=== PATIENT | female | born 1960 | race African-American/Black ===

== ENCOUNTER 2025-03-07 14:53 | Outpatient (AMB) | payer OTHER, SELFPAY ==
--- NOTE | 2025-03-07 15:02 | A.OFFPC_ITS ---
Vital Signs 03/07/25 15:04 Height 5 ft 4 in Weight 161 lb 2 oz BMI 27.7 BP 180/82 H Blood Pressure Location Lt brachial Position Sitting Respiration 18 Pulse 123 H Pulse Source Pulse Oximeter Temp 97.3 F Temp Source Temporal Artery Scan Pulse Oximetry (%) 96 Oxygen Delivery Method Room Air Intake Visit Reasons: establish care Diamond Mounter Required: No Accompanied by: Daughter Allergies pork derived (porcine) Allergy (Intermediate, Verified 03/07/25 15:20) Rash Medication List - Last Reconciled 03/07/25 by JENELLE Lebron atorvastatin (Lipitor) 40 mg PO BEDTIME brimonidine-timolol 0.2-0.5 % 1 drp ophthalmic (eye) BID losartan 100 mg PO DAILY nifedipine ER 30 mg PO BID travoprost 0.004% 1 drp ophthalmic (eye) QPM Tobacco use date assessed: 03/07/25 Dental Screening Dental Screen Date: 03/07/25 Did you have a dental visit in the last 12 months?: No Did you have a dental problem in the last 6 months where you did not have access to dental care?: No Was dental information given to patient?: Patient has dentist HPI establish care HPI Details Previous PCP: October, Last visit: 10/31/2024, she has been to urgent care few weeks back for med refill and blood pressure check Last PE: n/a Specialist: Needs ophthalmology referral (cataract) OBGYN: [facility] [place]- mammogram-needs ordered. Past medical history: severe whitecoat syndrome, high cholesterol, htn, cataract, Blindness in both eyes could see some bright colors, no dark colors, anxiety Medications: Family HX: htn-father hld-mother, father passed from throat cancer (smoker) surgical hx: hysterectomy and fibroid removd October,, tooth extraction Problem: The patient is a 64-year-old female who presents establish care and management of chronic conditions. The patient has a history of hypertension and white coat syndrome, for which she monitors her blood pressure at home. She has been complaining of right shoulder pain, which seems to have started after sleeping on that side. Pain is managed with as-needed Tylenol. The patient has a history of cataracts in both eyes and was previously scheduled for surgery, though this was postponed. She experiences visual disturbances, described as seeing dark colors. She uses two types of eye drops, one twice daily and another at nighttime, and requires refills. She reports chronic constipation, for which she has used Miralax powder. The patient also complains of intermittent pain in the joints of her fingers on both hands, without associated tingling. Past surgical history is significant for a hysterectomy for uterine fibroids. Family history is notable for high cholesterol and hypertension, and her father from colon cancer. Right shoulder pain for two weeks- has been taking Tylenol 500mg as needed with positive. [facility] Medical History (Updated 03/13/25 @ 14:39 by JENELLE Lebron) Blindness Cataract Hypertension Anxiety High cholesterol Surgical History H/O: hysterectomy H/O tooth extraction Social History Household Members: Family Housing: House Alcohol intake: current Patient Tobacco Use Status: Never used Tobacco e-Cigarette/Vaping Use: Never Used Current occupational status: disabled Cognitive needs: Yes Hearing needs: No Vision needs: Yes Questionnaire PHQ-9 Over the last 2 weeks, how often have you been bothered by any of the following problems? 1. Little interest or pleasure in doing things: not at all 2. Feeling down, depressed, or hopeless: not at all 3. Trouble falling or staying asleep, or sleeping too much: not at all 4. Feeling tired or having little energy: not at all 5. Poor appetite or overeating: not at all 6. Feeling bad about yourself - or that you are a failure or have let yourself or your family down: not at all 7. Trouble concentrating on things, such as reading the newspaper or watching television: not at all 8. Moving or speaking so slowly that other people could have noticed. Or the opposite - being so fidgety or restless that you have been moving around a lot more than usual: not at all 9. Thoughts that you would be better off or of hurting yourself in some way: not at all Total score: 0 Depression Screening Interpretation: Negative Depression Screening Done: Yes 75417 - PHQ-9 Billing: Yes Source: Developed by Drs. Craig Cabral, Dusty Motta and colleagues, with an educational reginaldo from [employer]. Thrive Questionnaire Date Thrive assessed: 03/05/25 I am a: Parent/Caregiver What is your living situation today?: I have a steady place to live Within the past 12 months, did the food you bought not last and you didn't have the money to get more?: I choose not to answer this question Within the past 12 months, did you worry whether your food would run out before you got money to buy more?: I choose not to answer this question Do you have trouble paying for medicines?: No Do you have trouble getting transportation to medical appointments?: No Do you have trouble paying your heating and electricity bill?: I choose not to answer this question Do you have trouble taking care of your child, family member or friend?: No Do you have trouble with day-to-day activities such as bathing, preparing meals, shopping, managing finances, etc.?: Yes Are you currently unemployed and looking for a job?: No Are you interested in more education?: No Please select the resources that you would like help with: None Currently or been in a relationship where the following occur: No concerns reported THRIVE Score: 0 AUDIT C Alcohol Use Questionnaire (AUDIT-C) 1. How often do you have a drink containing alcohol?: Monthly or less 2. How many drinks containing alcohol do you have on a typical day when you are drinking?: 1 or 2 3. How often do you have six or more drinks on one occasion?: Never Total Score: 1 WILD-7 AMB Questionnaire WILD-7 Feeling nervous, anxious, or on edge: 0 = Not at all Not being able to stop or control worryin = Not at all Worrying too much about different things: 0 = Not at all Trouble relaxin = Not at all Being so restless that it is hard to sit still: 0 = Not at all Becoming easily annoyed or irritable: 0 = Not at all Feeling afraid as if something awful might happen: 0 = Not at all Total WILD-7 score (0-4 normal; 5-9 mild; 10-14 moderate; 15-21 severe): 0 Source: Developed by Drs. Craig Cabral, Dusty Motta and colleagues, with an educational reginaldo from [employer]. WILD-7 Assessment Billing WILD-7 Assessment Tool: WILD-7 Assessment 67536 Review of Systems Const Denies headache(s) Eyes Reports change in vision (Seeing dark spots) and Reports loss of vision ENT Denies vertigo, Denies dizziness, Denies headache(s) and Denies sore throat Card Denies chest pain, Denies leg edema and Denies lightheadedness Resp Denies cough, Denies hemoptysis and Denies wheezing GI Denies abdominal pain, Denies melena, Reports constipation, Denies diarrhea and Denies vomiting Denies urinary frequency, Denies dysuria and Denies urinary urgency Musc Reports arthralgias (Right shoulder and knee), Denies joint swelling, Denies numbness and Denies tingling Neuro Denies Abnormal speech present, Denies behavioral changes, Denies vertigo, Denies dizziness, Denies headache(s), Reports loss of vision, Denies memory loss, Denies numbness and Denies tingling Psych Denies anxiety, Denies behavioral changes, Denies depression, Denies memory loss and Denies panic attacks Javier/Lymph Denies easy bleeding and Denies easy bruising Aller/Immun Denies wheezing Physical exam (Primary Care) Vital Signs: Last Vital Signs Temp 97.3 F 03/07/25 15:04 Pulse 123 H 03/07/25 15:04 Resp 18 03/07/25 15:04 BP 180/82 H 03/07/25 15:04 Pulse Ox 96 03/07/25 15:04 Oxygen Delivery Method Room Air 03/07/25 15:04 BMI result Body Mass Index 27.7 Tobacco/Smoking Status: Tobacco use Status Tobacco use date assessed 03/07/25 03/07/25 15:19 Patient Tobacco Use Status Never used Tobacco 03/07/25 15:19 e-Cigarette/Vaping Use Never Used 03/07/25 15:19 PHQ-9: PHQ-9 Score PHQ-9: Total score 0 03/13/25 13:38 Depression Screening Interpretation: Negative Thrive Assessment: Date of Thrive Assessment Date Thrive assessed 03/05/25 03/07/25 15:19 Currently or been in a relationship where the following occur: No concerns reported Const General: healthy appearing, no acute distress, alert and awake Nutritional Appearance: well nourished Orientation/consciousness: oriented to person, oriented to place and oriented to time HENMT Ears: TM normal on the left and Abnormal EAC present cerumen impaction on the right General nose exam: Normal nasal mucous membranes and turbinates present Eyes Conjunctivae: conjunctivae normal Sclerae: sclerae normal Pupils: Equal, round and reactive pupils present Neck Neck: Yes no lymphadenopathy and Yes no JVD Thyroid: Thyroid normal Carotids: no bruits Resp Effort & Inspection: normal respiratory effort and not tachypneic Auscultation: no crackles, no rales, no rhonchi and no wheezes Cardio Rate: regular rate Rhythm: regular rhythm Heart sounds: no murmurs and normal S1 and S2 GI Palpation (GI): Soft to palpation, nontender, no hepatomegaly and no splenomegaly Auscultation: normal bowel sounds General: Yes no CVA tenderness Back/Spine/Pelvis Back: no CVA tenderness Thoracic/Lumbar Spine: No lumbar spinal tenderness Skin General skin exam: no rashes or lesions noted and dry skin Neuro General: oriented to person, oriented to place and oriented to time Cranial nerves: Yes Equal, round and reactive pupils present Speech: No Abnormal speech present Gait exam (Neuro): Normal gait present Motor exam (neuro): no tremor noted Extrem Right upper extremity: full ROM and shoulder/upper arm Details: tenderness Location: of the A-C joint and normal ROM; no swelling Left upper extremity: full ROM Right lower extremity: full ROM and knee Details: no tenderness and no swelling; no edema Left lower extremity: full ROM; no edema Psych Mental Status: mental status grossly normal Speech and movement: Normal speech and movement present Affect: normal affect Attitude: cooperative Thought process: Normal thought process present Coding Level of Care Code New Pt Level 4 (63188) Diagnoses Primary hypertension I10 Hypertension type: primary hypertension Cataract of both eyes, unspecified cataract type H26.9 Cataract type: unspecified Laterality: bilateral Blindness of left eye, unspecified right eye visual impairment category H54.40 Left eye visual impairment category: left - unspecified blindness Right eye visual impairment category: right - unspecified impairment Acute pain of right shoulder M25.511 Chronicity: acute Constipation, unspecified constipation type K59.00 Constipation type: unspecified constipation type Right ear impacted cerumen H61.21 Additional Codes PHQ-9 - 71631 - PHQ-9 Billing: Yes ([id number]) WILD-7 Assessment Billing - WILD-7 Assessment Tool: WILD-7 Assessment 95055 ([id number]) Time Spent (min) 39 Assessment & Plan Assessment & Plan (1) Hypertension: Code(s): I10 - Essential (primary) hypertension Category: Medical Qualifiers: Hypertension type: primary hypertension Qualified Code(s): I10 - Essential (primary) hypertension Plan: The patient has a history of hypertension and white coat syndrome, requiring her to monitor her blood pressure at home. She has about one month of her cholesterol medication left and also needs refills for her blood pressure medications. The plan is to continue home monitoring, refill her medications, and order comprehensive blood work to ensure her kidneys and electrolytes are stable. (2) Cataract: Code(s): H26.9 - Unspecified cataract Category: Medical Qualifiers: Cataract type: unspecified Laterality: bilateral Qualified Code(s): H26.9 - Unspecified cataract Plan: The patient has bilateral cataracts affecting her vision, and a previously scheduled surgery was postponed. She uses two different eye drops and needs refills for both. A referral will be placed to ophthalmology for further management and surgical evaluation, and her eye drops will be refilled. (3) Blindness: Code(s): H54.7 - Unspecified visual loss Category: Medical Qualifiers: Left eye visual impairment category: left - unspecified blindness Right eye visual impairment category: right - unspecified impairment Qualified Code(s): H54.40 - Blindness, one eye, unspecified eye Plan: Patient reports blindness in bilateral eyes. She could see some colors but she is legally blind. (4) Right shoulder pain: Code(s): M25.511 - Pain in right shoulder Category: Medical Qualifiers: Chronicity: acute Qualified Code(s): M25.511 - Pain in right shoulder Plan: The patient's right shoulder pain is thought to be inflammatory, likely from sleeping on her side. She has been taking Tylenol as needed. Examination revealed tenderness without restricted motion, and there is no numbness, tingling, or weakness. An x-ray of the right shoulder will be ordered to establish a baseline and evaluate for underlying arthritis. (5) Constipation: Code(s): K59.00 - Constipation, unspecified Category: Medical Qualifiers: Constipation type: unspecified constipation type Qualified Code(s): K59.00 - Constipation, unspecified Plan: The patient experiences chronic constipation and manages it with Miralax powder, of which she is running low. It was recommended that she take Miralax daily to maintain regular bowel movements, and adjust the frequency if her stools become too loose. (6) Right ear impacted cerumen: Code(s): H61.21 - Impacted cerumen, right ear Category: Medical Plan: Physical exam revealed a cerumen impaction in the right ear. The patient was instructed to use Debrox drops to soften the wax, followed by flushing with warm water using a bulb syringe. She was advised to return for a recheck and possible in-office removal if home treatment is not effective. Orders: Orders Lipid Panel 03/07/25 E78.5 - Hyperlipidemia, unspecified, H26.9 - Unspecified cataract, H54.7 - Unspecified visual loss, I10 - Essential (primary) hypertension, Z00.00 - Encounter for general adult medical examination without abnormal findings TSH reflex Free T4 03/07/25 E78.5 - Hyperlipidemia, unspecified, H26.9 - Unspecified cataract, H54.7 - Unspecified visual loss, I10 - Essential (primary) hypertension, Z00.00 - Encounter for general adult medical examination without abnormal findings UA CC w/rflx Micro + Cult 03/07/25 E78.5 - Hyperlipidemia, unspecified, H26.9 - Unspecified cataract, H54.7 - Unspecified visual loss, I10 - Essential (primary) hypertension, Z00.00 - Encounter for general adult medical examination without abnormal findings MM tomosynthesis screening BI Today Z12.31 - Encounter for screening mammogram for malignant neoplasm of breast Complete Blood Count Auto Diff 03/07/25 E78.5 - Hyperlipidemia, unspecified, H26.9 - Unspecified cataract, H54.7 - Unspecified visual loss, I10 - Essential (primary) hypertension, Z00.00 - Encounter for general adult medical examination without abnormal findings Comprehensive [place]. Panel Fast 03/07/25 E78.5 - Hyperlipidemia, unspecified, H26.9 - Unspecified cataract, H54.7 - Unspecified visual loss, I10 - Essential (primary) hypertension, Z00.00 - Encounter for general adult medical examination without abnormal findings Vitamin D 25-OH Total 03/07/25 E78.5 - Hyperlipidemia, unspecified, H26.9 - Unspecified cataract, H54.7 - Unspecified visual loss, I10 - Essential (primary) hypertension, Z00.00 - Encounter for general adult medical examination without abnormal findings XR shoulder RT min 2V 03/07/25 M25.511 - Pain in right shoulder Referrals Ophthalmology Referral H26.9 - Unspecified cataract, H54.7 - Unspecified visual loss [employer] Referral Z01.419 - Encounter for gynecological examination (general) (routine) without abnormal findings Medications: New brimonidine-timolol 0.2-0.5 % 1 drp ophthalmic (eye) BID 15 mL 3RF travoprost 0.004% 1 drp ophthalmic (eye) QPM 5 mL 3RF
[2025-03-07 15:04] VITALS: BP 180/82; PULSE 123; RESP 18; TEMP 36.3; O2SAT 96; BMI 27.7
== END 2025-03-07 16:01 | disposition home or self-care (01) ==
LOC: HO.HMCH 14:54
DX: I10 Essential (primary) hypertension (principal); H26.9 Unspecified cataract; H54.40 Blindness, one eye, unspecified eye; M25.511 Pain in right shoulder; K59.00 Constipation, unspecified; H61.21 Impacted cerumen, right ear

== ENCOUNTER → 2025-03-07 14:53 | Outpatient (BNVA) | payer OTHER, SELFPAY | DX: I10 Essential (primary) hypertension (principal); M25.511 Pain in right shoulder; H26.9 Unspecified cataract; K59.09 Other constipation; M54.40 Lumbago with sciatica, unspecified side; H61.21 Impacted cerumen, right ear | CPT/HCPCS: 96127; 99202 ==

== ENCOUNTER 2025-03-14 12:38 | Outpatient (REF) | payer OTHER, SELFPAY ==
--- NOTE | ~2025-03-14 | XR_ITS ---
EXAMINATION: XR SHOULDER, RIGHT CLINICAL INFORMATION: M25.511 - Pain in right shoulder COMPARISON: None available. TECHNIQUE: AP external rotation, Grashey, scapular Y, and axillary views of the right shoulder. FINDINGS: Bone mineralization appears slightly decreased. No visible acute fracture or dislocation. No suspicious bony lesion. Mild acromioclavicular arthritis. Minimal glenohumeral joint arthritis. Mild greater tuberosity bony spurring. No abnormal soft tissue calcification. XR/XR shoulder RT min 2V IMPRESSION: Mild acromioclavicular arthritis. Minimal glenohumeral joint arthritis. Electronically signed by: Robin Boss MD 03/14/2025 04:23 PM ROCKY ANDERSEN
[2025-03-14 13:07] LABS: MANUAL DIFF FLAG NO
[2025-03-14 13:39] LABS: Hematocrit 39.8 % (37.0-47.0); Hemoglobin 12.9 g/dl (12.0-16.0); Imm Gran Abs Auto 0.02 X10*3/uL (0.00-0.03); Imm Gran Pct Auto 0.4 % (0.0-0.4); Lymphocytes Absolute Auto 1.9 X10*3/uL (1.2-4.9); Mean Corpuscular HGB Conc 32.4 g/dl (31.0-35.0); Mean Corpuscular Hemoglobin 26.8 pg (27.0-33.0); Mean Corpuscular Volume 82.7 fL (80.0-98.0); NRBC Abs Auto 0.000 X10*3/uL (0.0-0.012); NRBC Pct Auto 0.0 /100WBC (0.0-0.2); Platelet Count 316 X10*3/uL (160-400); Red Blood Count 4.81 X10*6/uL (4.20-5.50); White Blood Count 5.6 X10*3/uL (4.8-10.8)
[2025-03-14 14:24] LABS: Alanine Aminotransferase 70 U/L (0-31); Albumin Level 5.1 g/dL (3.5-5.0); Alkaline Phosphatase 95 U/L (39-117); Anion Gap 15 (12-20); Aspartate Amino Transferase 44 U/L (5-31); Blood Urea Nitrogen 14 mg/dL (9-16); Calcium 10.5 mg/dL (8.4-10.2); Carbon Dioxide 23 mmol/L (22-29); Chloride 108 mmol/L (96-108); Cholesterol 178 mg/dL (<200); Estimated Glomerular Filt Rate > 60; HDL Cholesterol 42 mg/dL (>40); Potassium 3.9 mmol/L (3.3-5.1); Sodium 142 mmol/L (135-145); Total Protein 9.2 g/dL (6.5-8.0); Triglycerides 222 mg/dL (<150)
== END 2025-03-14 12:39 | disposition home or self-care (01) ==
LOC: HO.XRAY 12:38
DX: Z00.00 Encounter for general adult medical examination without abnormal findings (principal); I10 Essential (primary) hypertension; M25.511 Pain in right shoulder; E78.5 Hyperlipidemia, unspecified; H26.9 Unspecified cataract; H54.7 Unspecified visual loss
CPT/HCPCS: 36415; 73030; 80053; 80061; 82306; 84443; 85025

== ENCOUNTER 2025-03-15 11:12 | Outpatient (REF) | payer OTHER, SELFPAY ==
[2025-03-15 11:32] LABS: Appearance Urine Clear; Glucose Urine UA Negative (Negative); PH 5.5 (5.0-9.0); Specific Gravity - Urine 1.020 (1.005-1.025); UMIC TRIGGER UACC YES
== END 2025-03-15 11:13 | disposition home or self-care (01) ==
LOC: HO.LNP 11:12
DX: Z00.00 Encounter for general adult medical examination without abnormal findings (principal); I10 Essential (primary) hypertension; E78.5 Hyperlipidemia, unspecified; H26.9 Unspecified cataract; H54.7 Unspecified visual loss
CPT/HCPCS: 81001

== ENCOUNTER 2025-04-12 09:07 | Outpatient (REF) | payer OTHER, SELFPAY ==
[2025-04-12 10:48] LABS: Parathyroid Hormone Intact 55.6 pg/mL (8.7-77.1)
[2025-04-12 10:56] LABS: Alanine Aminotransferase 17 U/L (0-31); Albumin Level 4.9 g/dL (3.5-5.0); Alkaline Phosphatase 74 U/L (39-117); Anion Gap 13 (12-20); Aspartate Amino Transferase 16 U/L (5-31); Blood Urea Nitrogen 13 mg/dL (9-16); Calcium 10.4 mg/dL (8.4-10.2); Carbon Dioxide 26 mmol/L (22-29); Chloride 105 mmol/L (96-108); Estimated Glomerular Filt Rate > 60; Magnesium 2.1 mg/dL (1.6-2.6); Potassium 3.4 mmol/L (3.3-5.1); Sodium 141 mmol/L (135-145); Total Protein 8.8 g/dL (6.5-8.0)
[2025-04-12 11:13] LABS: HBS Num1 13.30 mIU/mL (0-7.99); HBc Num1 6.48 S/CO (0.00-0.79); HBsAGNum1 0.40 S/CO (0.00-0.99); Hepatitis A Antibody IgM 0.26 Index (0-0.79); Hepatitis B Surface Antigen Negative (Negative); ~HepC Num1 0.23 S/CO (0.00-0.79); ~Hepatitis A Antibody IgM Nonreactive (Nonreactive); ~Hepatitis B Surface Antibody REACTIVE (Nonreactive); ~Hepatitis C Antibody Nonreactive (Nonreactive)
[2025-04-12 11:24] LABS: Appearance Urine Clear; Glucose Urine UA Negative (Negative); PH 6.5 (5.0-9.0); Specific Gravity - Urine 1.010 (1.005-1.025); UMIC TRIGGER UACC YES
[2025-04-12 12:00] LABS: HBc Num2 6.32 S/CO; HBc Num3 6.56 S/CO
[2025-04-14 18:44] LABS: Transferrin 282 mg/dL (188-341)
[2025-04-15 09:49] LABS: Calcium, Ionized 5.6 mg/dL (4.7-5.5)
== END 2025-04-12 09:08 | disposition home or self-care (01) ==
LOC: HO.LAB 09:07
DX: R74.8 Abnormal levels of other serum enzymes (principal); E83.52 Hypercalcemia; R73.01 Impaired fasting glucose; Z11.59 Encounter for screening for other viral diseases
CPT/HCPCS: 36415; 80053; 81001; 81003; 82306; 82330; 83036; 83735; 83970; 84100; 84466; 86704; 86706; 86709; 86803; 87340

== ENCOUNTER 2025-04-28 16:05 | Outpatient (AMB) | payer OTHER, SELFPAY ==
[2025-04-28 16:08] VITALS: BP 158/100; PULSE 125; RESP 16; TEMP 37.3; O2SAT 97; BMI 28.6
--- NOTE | 2025-04-28 16:08 | MHC.PC.OV ---
Vital Signs 04/28/25 16:08 Height 5 ft 4 in Weight 166 lb 10.711 oz BMI 28.6 BP 158/100 H Blood Pressure Location Lt brachial Position Sitting Respiration 16 Pulse 125 H Pulse Source Pulse Oximeter Temp 99.1 F Temp Source Oral Pulse Oximetry (%) 97 Oxygen Delivery Method Room Air Intake Visit Reasons: Annual exam Poster Required: No Accompanied by: Self / Same As Patient Allergies pork derived (porcine) Allergy (Intermediate, Verified 04/28/25 16:23) Rash travaprost Allergy (Severe, Uncoded 04/28/25 16:23) Facial Swelling Medication List - Last Reconciled 04/28/25 by JENELLE Lebron atorvastatin (Lipitor) 40 mg PO BEDTIME brimonidine-timolol 0.2-0.5 % 1 drp ophthalmic (eye) BID erythromycin 0.5 inches ophthalmic (eye) BID 7 days latanoprost 0.005% 1 drp ophthalmic (eye) QPM losartan 100 mg PO DAILY nifedipine ER 30 mg PO BID 90 days travoprost 0.004% 1 drp ophthalmic (eye) QPM Tobacco use date assessed: 04/28/25 Dental Screening Dental Screen Date: 04/28/25 Did you have a dental visit in the last 12 months?: No Did you have a dental problem in the last 6 months where you did not have access to dental care?: No Was dental information given to patient?: No HPI Annual exam HPI Details Dentist: Not yet Eye: appointment in [place] in [facility] [place]: Right: Left: Corrected vision: STI screening: Colonoscopy: Pap Smer:appointment scheduled PHQ-9: Flu: up to date COVID: up to ishaan Tdap:up to date Diet: regular Exercise: The patient is a 64 year old female presenting for a follow-up visit to review lab results and manage chronic conditions. She has a history of white coat hypertension, with blood pressure readings being normal at home but elevated in the clinic. She checks her blood pressure about twice a week at home. Recent lab work revealed an A1c of 6.2%, placing her in the prediabetic range. Her liver enzymes, which were previously elevated, have normalized since she stopped taking her statin medication about two weeks prior to the labs. Her triglycerides are elevated, and her CBC showed a low-normal MCV and MCH, indicating a potential future risk for iron deficiency anemia. Her calcium level remains slightly elevated at 10.2, though it has decreased slightly. A prior check of her parathyroid hormone was normal but on the higher side, and a urinalysis showed trace blood. The patient also reports ongoing right shoulder pain, presumed to be from arthritis, which has responded well to topical diclofenac gel in the past. She experiences occasional dependent edema in her feet and has had some recent nasal congestion. She expresses anxiety in clinical settings. Regarding health maintenance, the patient has an upcoming eye exam in June and a [employer] appointment in May. She needs to schedule a dental visit and a mammogram. She has never had a colonoscopy and is agreeable to Cologuard testing. Health Maintenance Continue with scheduled appointments, including her eye exam in June and [employer] visit in May. An order for Cologuard will be placed for colon cancer screening. A prescription for a transfer chair will be submitted. Social History - Nutrition: Advised to monitor intake of sugar and carbohydrates such as bread and rice. - Functional Status: Utilizes a wheelchair; a request for a chlorination operator, foldable transfer chair was made. Results - CBC: Results are good, though MCV and MCH are on the low side of normal, suggesting red blood cells are slightly pale and small, which could indicate a trend toward iron deficiency. - Comprehensive Metabolic Panel: Electrolytes, BUN, and creatinine are within normal limits. Potassium is slightly lower but still normal. Glucose is fine. - Hemoglobin A1c: 6.2%, which is in the prediabetic range. - Calcium: Slightly elevated at 10.2, but has come down slightly. - Ionized Calcium: Slightly low. - Parathyroid Hormone (PTH): Normal, but on the higher side of the range. - Liver Function Tests: Liver enzymes are completely normal. - Lipid Panel: Triglycerides are elevated. Other cholesterol values are good. - Thyroid Function Tests: TSH is good. - Urinalysis: Shows traces of blood. [facility] Medical History (Updated 04/30/25 @ 12:54 by JENELLE Lebron) Blindness Cataract Hypertension Anxiety High cholesterol Surgical History H/O: hysterectomy H/O tooth extraction Social History Household Members: Family Housing: House Alcohol intake: current Patient Tobacco Use Status: Never used Tobacco e-Cigarette/Vaping Use: Never Used Current occupational status: disabled Cognitive needs: Yes Hearing needs: No Vision needs: Yes Questionnaire PHQ-9 Over the last 2 weeks, how often have you been bothered by any of the following problems? 1. Little interest or pleasure in doing things: not at all 2. Feeling down, depressed, or hopeless: not at all 3. Trouble falling or staying asleep, or sleeping too much: not at all 4. Feeling tired or having little energy: not at all 5. Poor appetite or overeating: not at all 6. Feeling bad about yourself - or that you are a failure or have let yourself or your family down: not at all 7. Trouble concentrating on things, such as reading the newspaper or watching television: not at all 8. Moving or speaking so slowly that other people could have noticed. Or the opposite - being so fidgety or restless that you have been moving around a lot more than usual: not at all 9. Thoughts that you would be better off or of hurting yourself in some way: not at all Total score: 0 Depression Screening Interpretation: Negative Depression Screening Done: Yes Source: Developed by Drs. Craig Cabral, Holly Merchant, Dusty Rahman and colleagues, with an educational reginaldo from [employer]. Thrive Questionnaire Date Thrive assessed: 04/28/25 I am a: Parent/Caregiver What is your living situation today?: I have a steady place to live Within the past 12 months, did the food you bought not last and you didn't have the money to get more?: I choose not to answer this question Within the past 12 months, did you worry whether your food would run out before you got money to buy more?: I choose not to answer this question Do you have trouble paying for medicines?: No Do you have trouble getting transportation to medical appointments?: No Do you have trouble paying your heating and electricity bill?: I choose not to answer this question Do you have trouble taking care of your child, family member or friend?: No Do you have trouble with day-to-day activities such as bathing, preparing meals, shopping, managing finances, etc.?: Yes Are you currently unemployed and looking for a job?: No Are you interested in more education?: No Please select the resources that you would like help with: None Currently or been in a relationship where the following occur: No concerns reported THRIVE Score: 0 AUDIT C Alcohol Use Questionnaire (AUDIT-C) 1. How often do you have a drink containing alcohol?: Monthly or less 2. How many drinks containing alcohol do you have on a typical day when you are drinking?: 1 or 2 3. How often do you have six or more drinks on one occasion?: Never Total Score: 1 WILD-7 AMB Questionnaire WILD-7 Date WILD - 7 assessed: 04/28/25 Feeling nervous, anxious, or on edge: 0 = Not at all Not being able to stop or control worryin = Not at all Worrying too much about different things: 0 = Not at all Trouble relaxin = Not at all Being so restless that it is hard to sit still: 0 = Not at all Becoming easily annoyed or irritable: 0 = Not at all Feeling afraid as if something awful might happen: 0 = Not at all Total WILD-7 score (0-4 normal; 5-9 mild; 10-14 moderate; 15-21 severe): 0 Source: Developed by Drs. Craig Cabral, Holly Merchant, Dusty Rahman and colleagues, with an educational reginaldo from [employer]. Review of Systems Narrative Review of Systems - Respiratory: Reports recent mild congestion. Denies cough. - Musculoskeletal: Reports shoulder pain. - Lower Extremities: Reports occasional foot swelling. - Abdomen: Denies abdominal pain. - Neurological/Psychiatric: Reports feeling very anxious in the doctor's office. Const Denies headache(s) Eyes Reports change in vision (Seeing dark spots) and Reports loss of vision ENT Denies vertigo, Denies dizziness, Denies headache(s) and Denies sore throat Card Denies chest pain, Denies leg edema and Denies lightheadedness Resp Denies cough, Denies hemoptysis and Denies wheezing GI Denies abdominal pain, Denies melena, Reports constipation, Denies diarrhea and Denies vomiting Denies urinary frequency, Denies dysuria and Denies urinary urgency Musc Reports arthralgias (Right shoulder and knee), Denies joint swelling, Denies numbness and Denies tingling Neuro Denies Abnormal speech present, Denies behavioral changes, Denies vertigo, Denies dizziness, Denies headache(s), Reports loss of vision, Denies memory loss, Denies numbness and Denies tingling Psych Denies anxiety, Denies behavioral changes, Denies depression, Denies memory loss and Denies panic attacks Javier/Lymph Denies easy bleeding and Denies easy bruising Aller/Immun Denies wheezing Physical exam (Primary Care) Vital Signs: Last Vital Signs Temp 98.9 F 04/28/25 16:08 Pulse 125 H 04/28/25 16:08 Resp 16 04/28/25 16:08 BP 158/100 H 04/28/25 16:08 Pulse Ox 97 04/28/25 16:08 Oxygen Delivery Method Room Air 04/28/25 16:08 BMI result Body Mass Index 28.6 Tobacco/Smoking Status: Tobacco use Status Tobacco use date assessed 04/28/25 04/28/25 16:16 Patient Tobacco Use Status Never used Tobacco 04/28/25 16:16 e-Cigarette/Vaping Use Never Used 04/28/25 16:16 PHQ-9: PHQ-9 Score PHQ-9: Total score 0 04/30/25 07:55 Depression Screening Interpretation: Negative Thrive Assessment: Date of Thrive Assessment Date Thrive assessed 04/28/25 04/28/25 16:16 Currently or been in a relationship where the following occur: No concerns reported Narrative Physical Exam - Vitals: Temperature 99.1??F. - General: Patient appears very anxious. - ENT: Nasal mucosa are swollen. Cerumen buildup is beginning again in one ear. - Abdomen: Soft, non-tender to palpation. - Extremities: No tenderness in the lower legs with squeezing. Const General: healthy appearing, no acute distress, alert and awake Nutritional Appearance: well nourished Orientation/consciousness: oriented to person, oriented to place and oriented to time HENMT Ears: TM normal on the left and Abnormal EAC present cerumen impaction on the right General nose exam: Normal nasal mucous membranes and turbinates present Eyes Conjunctivae: conjunctivae normal Sclerae: sclerae normal Pupils: Equal, round and reactive pupils present Neck Neck: Yes no lymphadenopathy and Yes no JVD Thyroid: Thyroid normal Carotids: no bruits Resp Effort & Inspection: normal respiratory effort and not tachypneic Auscultation: no crackles, no rales, no rhonchi and no wheezes Cardio Rate: regular rate Rhythm: regular rhythm Heart sounds: no murmurs and normal S1 and S2 GI Palpation (GI): Soft to palpation, nontender, no hepatomegaly and no splenomegaly Auscultation: normal bowel sounds General: Yes no CVA tenderness Back/Spine/Pelvis Back: no CVA tenderness Thoracic/Lumbar Spine: No lumbar spinal tenderness Skin General skin exam: no rashes or lesions noted and dry skin Neuro General: oriented to person, oriented to place and oriented to time Cranial nerves: Yes Equal, round and reactive pupils present Speech: No Abnormal speech present Gait exam (Neuro): Normal gait present Motor exam (neuro): no tremor noted Deep tendon reflexes (DTR's): Right triceps reflex intensity grade: 2+, Left triceps reflex intensity grade: 2+, Rt Biceps (C5, C6): 2+, Left biceps reflex intensity grade: 2+, Right brachioradialis reflex intensity grade: 2+ and Left brachioradialis reflex intensity grade: 2+ Extrem Right upper extremity: full ROM and shoulder/upper arm Details: tenderness Location: of the A-C joint and normal ROM; no swelling Left upper extremity: full ROM Right lower extremity: full ROM and knee Details: no tenderness and no swelling; no edema Left lower extremity: full ROM; no edema Psych Mental Status: mental status grossly normal Speech and movement: Normal speech and movement present Affect: normal affect Attitude: cooperative Thought process: Normal thought process present Results Reviewed Results Reviewed: Laboratory Tests 03/14/25 04/12/25 04/12/25 13:04 09:24 09:34 WBC 5.6 RBC 4.81 Hgb 12.9 Hct 39.8 MCV 82.7 MCH 26.8 L MCHC 32.4 RDW 13.5 Plt Count 316 MPV 10.2 Sodium 141 Potassium 3.4 Chloride 105 Carbon Dioxide 26 Anion Gap 13 BUN 13 Creatinine 0.72 Estimated GFR > 60 Random Glucose 100 Fasting Glucose 110 H Estimat Average Glucose 131 Hemoglobin A1c % 6.2 H Calcium 10.5 H 10.4 H Ionized Calcium 5.6 H Phosphorus 2.9 Magnesium 2.1 Transferrin 282 Total Bilirubin 0.5 0.6 AST 44 H 16 ALT 70 H 17 Alkaline Phosphatase 95 74 Total Protein 9.2 H 8.8 H Albumin 5.1 H 4.9 Triglycerides 222 H Cholesterol 178 LDL Cholesterol, Calc 92 HDL Cholesterol 42 25-OH Vitamin D Total 35.0 30.8 TSH 1.19 PTH Intact 55.6 Urine Color Yellow Urine Appearance Clear Urine pH 6.5 Ur Specific Nelson 1.010 Urine Protein Negative Urine Glucose (UA) Negative Urine Ketones Negative Urine Blood Small (1+) H Urine Nitrite Negative Ur Leukocyte Esterase Trace H Urine RBC 0-2 Urine WBC 0-5 Ur Squamous Epith Cells 0-2 Urine Bacteria 4+ Hyaline Casts 0-2 Hepatitis A IgM Ab Nonreactive Hep Bs Antigen Negative Hep Bs Antibody REACTIVE Hep B Core Total Ab Reactive Hepatitis C Ab (EIA) Nonreactive Coding Level of Care Code Est Pt Prev Care 40-64y(62043) Diagnoses Annual physical exam Z00.00 Primary hypertension I10 Hypertension type: primary hypertension Cataract of both eyes, unspecified cataract type H26.9 Cataract type: unspecified Laterality: bilateral Blindness of left eye, unspecified right eye visual impairment category H54.40 Left eye visual impairment category: left - unspecified blindness Right eye visual impairment category: right - unspecified impairment Acute pain of right shoulder M25.511 Chronicity: acute Constipation, unspecified constipation type K59.00 Constipation type: unspecified constipation type Right ear impacted cerumen H61.21 Chronic pain of right knee M25.561; G89.29 Chronicity: chronic Hyperlipidemia, unspecified hyperlipidemia type E78.5 Hyperlipidemia type: unspecified IFG (impaired fasting glucose) R73.01 Elevated liver enzymes R74.8 Hematuria, unspecified type R31.9 Hematuria type: unspecified type Serum calcium elevated E83.52 Allergic rhinitis, unspecified seasonality, unspecified trigger J30.9 Allergic rhinitis trigger: unspecified Allergic rhinitis seasonality: unspecified Time Spent (min) 37 Assessment & Plan Assessment & Plan (1) Annual physical exam: Code(s): Z00.00 - Encounter for general adult medical examination without abnormal findings Category: Medical Plan: Preventative guidelines and recent labs reviewed with patient and daughter. Mammogram and cologuard were ordered. The patient prefers to do a cologuard testing instead of colonoscopy. Patient was referred to [facility] on previous visit. (2) Hypertension: Code(s): I10 - Essential (primary) hypertension Category: Medical Qualifiers: Hypertension type: primary hypertension Qualified Code(s): I10 - Essential (primary) hypertension Plan: The patient has a history of hypertension and white coat syndrome, requiring her to monitor her blood pressure at home. The patient daughter who is a medical insurance coder has been monitoring blood pressure at home and reports that her blood pressures are normal at home. Reinforced low-salt diet and activity as tolerated. Continue nifedipine ER 30 mg b.i.d., losartan 100 mg daily (3) Cataract: Code(s): H26.9 - Unspecified cataract Category: Medical Qualifiers: Cataract type: unspecified Laterality: bilateral Qualified Code(s): H26.9 - Unspecified cataract Plan: The patient has bilateral cataracts affecting her vision, and a previously scheduled surgery was postponed. She uses two different eye drops and needs refills for both. Referral was placed to ophthalmology and the patient has an upcoming appointment at [facility] on the 06 of June. (4) Blindness: Code(s): H54.7 - Unspecified visual loss Category: Medical Qualifiers: Left eye visual impairment category: left - unspecified blindness Right eye visual impairment category: right - unspecified impairment Qualified Code(s): H54.40 - Blindness, one eye, unspecified eye Plan: Patient reports blindness in bilateral eyes. She could see some colors but she is legally blind. (5) Right shoulder pain: Code(s): M25.511 - Pain in right shoulder Category: Medical Qualifiers: Chronicity: acute Qualified Code(s): M25.511 - Pain in right shoulder Plan: The patient's right shoulder pain is thought to be inflammatory, likely from sleeping on her side. She has been taking Tylenol as needed. Examination revealed tenderness without restricted motion, and there is no numbness, tingling, or weakness. Right shoulder x-ray showed Mild acromioclavicular arthritis and minimal glenohumeral joint arthritis. Continue modified activity as tolerated, diclofenac sodium 3% topical b.i.d. ordered. (6) Constipation: Code(s): K59.00 - Constipation, unspecified Category: Medical Qualifiers: Constipation type: unspecified constipation type Qualified Code(s): K59.00 - Constipation, unspecified Plan: The patient experiences chronic constipation and manages it with Miralax powder, of which she is running low. It was recommended that she take Miralax daily to maintain regular bowel movements, and adjust the frequency if her stools become too loose. (7) Right ear impacted cerumen: Code(s): H61.21 - Impacted cerumen, right ear Category: Medical Plan: Physical exam revealed a cerumen impaction in the right ear. The patient was instructed to use Debrox drops to soften the wax, followed by flushing with warm water using a bulb syringe. She was advised to return for a recheck and possible in-office removal if home treatment is not effective. Family was able to use the Debrox ear drops and bulb syringe to removed cerumen. Ear canal was clean upon examination. (8) Right knee pain: Code(s): M25.561 - Pain in right knee Category: Medical Qualifiers: Chronicity: chronic Qualified Code(s): M25.561 - Pain in right knee; G89.29 - Other chronic pain Plan: Chronic right knee pain makes it difficult for the patient to ambulate for a distance. She is assisted with a wheelchair for distance due to right knee pain and blindness. The patient is in need of a transfer wheelchair due to her multiple doctor's appointment and the need to be assisted by family. (9) HLD (hyperlipidemia): Code(s): E78.5 - Hyperlipidemia, unspecified Category: Medical Qualifiers: Hyperlipidemia type: unspecified Qualified Code(s): E78.5 - Hyperlipidemia, unspecified Plan: Tri 222, t-chol 178, ldl 92, hdl 42 Reinforced low-cholesterol diet and activity as tolerated Continue atorvastatin 40 mg at bedtime We will check lipid panel in 3 months (10) IFG (impaired fasting glucose): Code(s): R73.01 - Impaired fasting glucose Category: Medical Plan: Fasting glucose 110, A1c 6.2% Reinforced low sugar/carbohydrate diet and activity as tolerated We will continue to monitor fasting glucose and A1c (11) Elevated liver enzymes: Code(s): R74.8 - Abnormal levels of other serum enzymes Category: Medical Plan: AST 44 and ALT 70 previously, patient held atorvastatin Rechecked AST decreased to 16 and ALT decreased to 17 Hepatitis panel negative Encouraged the patient to resume atorvastatin 40 mg due to the risk versus benefits (12) Hematuria: Code(s): R31.9 - Hematuria, unspecified Category: Medical Qualifiers: Hematuria type: unspecified type Qualified Code(s): R31.9 - Hematuria, unspecified Plan: We will repeat urinalysis and add a urine cytology along with a renal ultrasound to further evaluate (13) Serum calcium elevated: Code(s): E83.52 - Hypercalcemia Category: Medical Plan: Calcium is mildly elevated at 10.4. Ionized calcium 5.6, PTH is normal and vitamin-D were normal. We will continue to monitor (14) Allergic rhinitis: Code(s): J30.9 - Allergic rhinitis, unspecified Category: Medical Qualifiers: Allergic rhinitis trigger: unspecified Allergic rhinitis seasonality: unspecified Qualified Code(s): J30.9 - Allergic rhinitis, unspecified Plan: The patient reports mild congestion and has swollen nasal passages on exam with a low-grade temperature of 99.1??F. A trial of Flonase (fluticasone) nasal spray is recommended. If her symptoms do not improve or worsen, she should follow up for consideration of antibiotics for a possible secondary bacterial infection. Plan Plan Patient was informed and verbally consented to the use of an ambient scribe for clinic note documentation during this visit. 1. Prediabetes And Hypertriglyceridemia The patient's A1c of 6.2% and elevated triglycerides place her in the prediabetic category. Management will focus on dietary modifications, specifically watching intake of sugar and carbohydrates like bread and rice. If her A1c continues to rise, initiating metformin will be considered. No medication is needed for the triglycerides at this time as they are not severely elevated. A repeat lipid panel will be checked in three months to monitor response to diet. 2. Hyperlipidemia / Statin Intolerance The normalization of liver enzymes after discontinuing the statin strongly suggests it was the cause of the transaminitis. The patient will remain off the statin for now. Her cholesterol will be rechecked in three months. If cholesterol levels spike, we will discuss the risks versus benefits of restarting the statin or trying a different one. 3. Mild Hypercalcemia And Hematuria The combination of mild hypercalcemia and trace hematuria raises suspicion for nephrolithiasis. A kidney ultrasound will be ordered to investigate for stones. Additionally, a repeat urinalysis and urine cytology will be ordered to rule out other causes of hematuria, such as abnormal bladder cells. The mildly elevated calcium will continue to be monitored. 4. Shoulder Arthritis The patient complains of shoulder pain consistent with arthritis, for which she prefers topical treatment. A prescription for diclofenac 3% gel will be sent, as it has provided relief previously and appears to be covered by her insurance. 5. Nasal Congestion The patient reports mild congestion and has swollen nasal passages on exam with a low-grade temperature of 99.1??F. A trial of Flonase (fluticasone) nasal spray is recommended. If her symptoms do not improve or worsen, she should follow up for consideration of antibiotics for a possible secondary bacterial infection. 6. Dependent Edema The patient experiences occasional foot swelling, likely dependent in nature. She is advised to keep her feet elevated and to use compression stockings to improve circulation. Discussion Notes I reviewed the patient's recent lab results with her and her caregiver. I explained that her A1c of 6.2% indicates prediabetes and discussed the importance of dietary changes, specifically reducing sugar and carbohydrate intake, to manage this. We discussed that her liver enzymes have returned to normal since stopping the statin, strongly suggesting this medication was the cause. I explained the plan to keep her off the statin for now and recheck her cholesterol in three months, emphasizing that if her cholesterol spikes, the benefits of a statin might outweigh the risk of mild liver enzyme elevation. I noted the continued mild elevation in her calcium and the trace blood in her urine, explaining that this combination raises concern for a possible kidney stone. I informed them of my plan to order a kidney ultrasound and a urine cytology to investigate further. For her nasal congestion and swollen nasal passages, I recommended a trial of Flonase and advised on when to seek further care if her symptoms worsen. We also discussed management for her shoulder arthritis, and I will prescribe diclofenac 3% gel as requested. I agreed to order a Cologuard test for colon cancer screening and a transfer wheelchair for mobility. We will follow up in three months to reassess. Patient Instructions - Continue to monitor your blood pressure at home. - Be mindful of your diet by reducing sugar and carbohydrates like bread and rice to help manage your blood sugar. - Do not restart your cholesterol (statin) medication at this time. - We will order a kidney ultrasound and further urine tests to check for kidney stones. - For your nasal congestion, you can try Flonase nasal spray. If you get nosebleeds, stop using it. Let us know if you are not feeling better, as you may need an antibiotic. - You will receive a prescription for Diclofenac 3% gel for your shoulder pain. - For the swelling in your feet, try to keep them elevated and use compression stockings. - We will send an order for a Cologuard kit for colon cancer screening. - We will also place an order for a new, foldable transfer wheelchair. - Please schedule a follow-up appointment in three months to recheck your cholesterol and other labs. Orders: Orders TSH reflex Free T4 3 Months E78.5 - Hyperlipidemia, unspecified, E83.52 - Hypercalcemia, I10 - Essential (primary) hypertension, R73.01 - Impaired fasting glucose Hemoglobin A1c 3 Months E78.5 - Hyperlipidemia, unspecified, E83.52 - Hypercalcemia, I10 - Essential (primary) hypertension, R73.01 - Impaired fasting glucose PTH Intact Intraoperative 3 Months E78.5 - Hyperlipidemia, unspecified, E83.52 - Hypercalcemia, I10 - Essential (primary) hypertension, R73.01 - Impaired fasting glucose Urine Cytology 04/28/25 R31.9 - Hematuria, unspecified Lipid Panel 3 Months E78.5 - Hyperlipidemia, unspecified, E83.52 - Hypercalcemia, I10 - Essential (primary) hypertension, R73.01 - Impaired fasting glucose UA CC w/rflx Micro + Cult 3 Months E78.5 - Hyperlipidemia, unspecified, E83.52 - Hypercalcemia, I10 - Essential (primary) hypertension, R73.01 - Impaired fasting glucose Complete Blood Count Auto Diff 3 Months E78.5 - Hyperlipidemia, unspecified, E83.52 - Hypercalcemia, I10 - Essential (primary) hypertension, R73.01 - Impaired fasting glucose Comprehensive [place]. Panel Fast 3 Months E78.5 - Hyperlipidemia, unspecified, E83.52 - Hypercalcemia, I10 - Essential (primary) hypertension, R73.01 - Impaired fasting glucose Vitamin D 25-OH Total 3 Months E78.5 - Hyperlipidemia, unspecified, E83.52 - Hypercalcemia, I10 - Essential (primary) hypertension, R73.01 - Impaired fasting glucose Phosphorus 3 Months E78.5 - Hyperlipidemia, unspecified, E83.52 - Hypercalcemia, I10 - Essential (primary) hypertension, R73.01 - Impaired fasting glucose US renal BI 04/28/25 R31.9 - Hematuria, unspecified Referrals Cologuard Test Z12.11 - Encounter for screening for malignant neoplasm of colon, Z12.12 - Encounter for screening for malignant neoplasm of rectum Medications: New diclofenac sodium 3% (Solaraze) 1 appl topical BID 100 grams 2RF fluticasone propionate 50 mcg/actuation administer into each nostril 1 spray intranasal BID 16 grams 0RF [Transport Wheelchair] As directed 1 ea 0RF G89.29 - Other chronic pain, H54.40 - Blindness, one eye, unspecified eye, M25.561 - Pain in right knee
== END 2025-04-28 17:01 | disposition home or self-care (01) ==
LOC: HO.HMCH 16:06
DX: Z00.00 Encounter for general adult medical examination without abnormal findings (principal); I10 Essential (primary) hypertension; H26.9 Unspecified cataract; H54.40 Blindness, one eye, unspecified eye; M25.511 Pain in right shoulder; K59.00 Constipation, unspecified; H61.21 Impacted cerumen, right ear; M25.561 Pain in right knee; G89.29 Other chronic pain; E78.5 Hyperlipidemia, unspecified; R73.01 Impaired fasting glucose; R74.8 Abnormal levels of other serum enzymes; R31.9 Hematuria, unspecified; E83.52 Hypercalcemia; J30.9 Allergic rhinitis, unspecified

== ENCOUNTER → 2025-04-28 16:05 | Outpatient (BNVA) | payer OTHER, SELFPAY | DX: Z00.00 Encounter for general adult medical examination without abnormal findings (principal); I10 Essential (primary) hypertension; H26.9 Unspecified cataract; H54.40 Blindness, one eye, unspecified eye; M25.511 Pain in right shoulder; K59.00 Constipation, unspecified; H61.21 Impacted cerumen, right ear; M25.561 Pain in right knee; G89.29 Other chronic pain; E78.5 Hyperlipidemia, unspecified; R73.01 Impaired fasting glucose; R74.8 Abnormal levels of other serum enzymes; R31.9 Hematuria, unspecified; E83.52 Hypercalcemia; J30.9 Allergic rhinitis, unspecified | CPT/HCPCS: 99396 ==